=== PATIENT | male | born 1960 | race Two or more races ===

== ENCOUNTER 2021-12-27 20:02 | Emergency (ER) | payer OTHER ==
[~2021-12-27] VITALS: Ht 165.1 cm; Wt 66.2 kg
[2021-12-27] MEDS ORDERED: DEXAMETHASONE SOD PHOSPHATE 10 MG/ML VIAL ONE (21:15)
[2021-12-27] MEDS ORDERED: KETOROLAC TROMETHAMINE INJ 30 MG/ML VIAL ONE (21:16)
[2021-12-27] MEDS ORDERED: NAPR-1164 PO (21:26)
[2021-12-27] MEDS ORDERED: CYCL10TA9 PO (21:26)
[2021-12-27] MEDS ORDERED: KETOROLAC TROMETHAMINE INJ 60 MG/2 ML VIAL IM ONE (21:30)
[2021-12-27] MEDS ORDERED: DEXAMETHASONE SOD PHOSPHATE 4 MG/ML VIAL IM ONE (21:30)
[2021-12-27 21:53] VITALS: BP 135/84
== END 2021-12-27 21:57 | disposition home or self-care (01) ==
LOC: ER 20:27
DX: M54.12 Radiculopathy, cervical region (principal)
CPT/HCPCS: 96372 ×2; 99284; J1100; J1885